=== PATIENT | female | born 1980 | race African-American/Black ===

== ENCOUNTER 2016-06-17 17:57 | Emergency (ER) | payer SELFPAY ==
[~2016-06-17 17:57] MED LIST: CYCL10TA2 PO
[2016-06-17 18:12] VITALS: BP 114/73
[2016-06-17 19:02] LABS: OBC FLU VALID
[2016-06-17] MEDS ORDERED: PROAIR HFA8.5 GM INH (19:24)
[2016-06-17] MEDS ORDERED: PRED20TA PO (19:24)
--- NOTE | 2016-06-17 19:25 | PHYS DOC ---
Past Medical History Past Medical History: GERD, STD Past Surgical History: Cholecystectomy, , Tubal ligation Additional Past Surgical Histo: D&C Smoking: Less than 1pk/day Alcohol Use: Occasionally Drug Use: None Adult General Chief Complaint Chief Complaint: SORE THROAT [facility] HPI Patient is a 36 year old female who presents with sore throat and sinus congestion for 3 days. She has also had a nonproductive cough. She denies fever , shortness of breath, abdominal pain, nausea, or vomiting. She did not receive a flu shot this year. She denies any known sick contacts. Her PCP is Dr. Weller. Review of Systems Review of Systems Constitutional: Denies fever or chills. [] Eyes: Denies change in visual acuity, redness, or eye pain. [] HENT: Denies ear pain. Reports sore throat and sinus congestion. Respiratory: Denies shortness of breath. Reports nonproductive cough. Cardiovascular: Denies chest pain, palpitations or edema. [] GI: Denies abdominal pain, nausea, vomiting, bloody stools or diarrhea. [] : Denies dysuria, hematuria or urinary frequency. [] Musculoskeletal: Denies back pain or joint pain. [] Integument: Denies rash or skin lesions. [] Neurologic: Denies headache, focal weakness or sensory changes. [] Endocrine: Denies polyuria or polydipsia. [] Psych: Denies anxiety or depression. [] All systems reviewed and negative unless otherwise stated in the HPI. Allergies Allergies Allergies Coded Allergies Type Severity Reaction Last Updated Verified amoxicillin Allergy Intermediate hives 03/15/15 Yes latex Allergy Intermediate "welts" 03/15/15 Yes Physical Exam Physical Exam Constitutional: Well developed, well nourished, no acute distress, non-toxic appearance. [] HENT: Normocephalic, atraumatic, bilateral external ears normal, oropharynx moist, no oral exudates, nose normal. Bilateral TMs without erythema or bulging. There is posterior pharyngeal erythema with mild bilateral tonsillar edema. There appear to be tonsilliths as opposed to exudates on the tonsils. Bilateral nasal turbinates are swollen and erythematous. Eyes: PERRLA, EOMI, conjunctiva normal, no discharge. [] Neck: Normal range of motion, no tenderness, supple, no stridor. [] Cardiovascular: Heart rate regular rhythm, no murmur [] Lungs & Thorax: Bilateral breath sounds clear to auscultation without wheezes, rales, or rhonchi. Skin: Warm, dry, no erythema, no rash. [] Neurologic: Alert and oriented X 3, normal motor function, normal sensory function, no focal deficits noted. [] Psychologic: Affect normal, judgement normal, mood normal. [] Current Patient Data Vital Signs Vital Signs Date Time Temp Pulse Resp B/P Pulse Ox O2 Delivery O2 Flow Rate FiO2 06/17/16 18:12 98.3 84 20 100 Room Air 98.3 Lab Values Laboratory Tests Test 06/17/16 18:33 Influenza Type A Antigen Negative (NEGATIVE) Influenza Type B Antigen Negative (NEGATIVE) Rapid strep negative EKG EKG [] Radiology/Procedures Radiology/Procedures [] Course & Med Decision Making Course & Med Decision Making Pertinent Labs and Imaging studies reviewed. (See chart for details) [] Dragon Disclaimer Dragon Disclaimer This electronic medical record was generated, in whole or in part, using a voice recognition dictation system. Departure Departure Impression: Primary Impression: URI (upper respiratory infection) Disposition: HOME, SELF-CARE Condition: STABLE Referrals: CEDRIC WELLER MD (PCP) Patient Instructions: Upper Respiratory Infection, Adult, [id number] Additional Instructions: Your flu and strep tests were negative today. You appear to have a viral upper respiratory infection. Please complete all of the prescribed steroid, even if you're feeling better. Please use the prescribed inhaler as needed for cough or shortness of breath. Do not use more often than directed. Please follow-up with your doctor if your symptoms continue. Return to emergency department if you have increased difficulty breathing, difficulty swallowing, or other new or concerning symptoms. Scripts Prednisone 20 Mg [id number] Mg PO DAILY 5 Days Prov:JESSICA MCGUIRE 06/17/16 Albuterol Sulfate (Proair Hfa Inhaler)8.5 Gm [id number].[id number] Puff INH Q4HRS PRN SHORTNESS OF BREATH #1 INHALER Prov:JESSICA MCGUIRE 06/17/16 Problem Qualifiers Primary Impression: URI (upper respiratory infection) URI type: unspecified viral URI Qualified Code: J06.9 - Acute upper respiratory infection, unspecified JESSICA MCGUIRE Jun 17, 2016 19:25
[2016-06-18 05:41] LABS: NEGATIVE OBC STREP NEG; POSITIVE OBC STREP POS
== END 2016-06-17 19:30 | disposition home or self-care (01) ==
LOC: ER 17:57
DX: J06.9 Acute upper respiratory infection, unspecified (principal); F17.200 Nicotine dependence, unspecified, uncomplicated; Z88.0 Allergy status to penicillin; Z91.040 Latex allergy status
CPT/HCPCS: 87070; 87804; 87880; 99284

== ENCOUNTER 2017-06-03 14:32 | Emergency (ER) | payer SELFPAY, OTHER ==
[2017-06-03 15:11] LABS: URINE HCG POC HCG NEGATIVE (Negative)
[2017-06-03 15:21] LABS: ADD MAN DIFF? NO
[2017-06-03 15:23] LABS: BASO # 0.1 x10^3/uL (0.0-0.2); BASO % 2 % (0-3); EOS # 0.2 x10^3/uL (0.0-0.7); EOS % 4 % (0-3); HEMATOCRIT 35.7 % (36.0-47.0); HEMOGLOBIN 11.3 g/dL (12.0-15.5); LYMPH % 39 % (24-48); MEAN CORPUSCULAR HEMOGLOBIN 24 pg (25-35); MEAN CORPUSCULAR HGB CONC 32 g/dL (31-37); MEAN CORPUSCULAR VOLUME 76 fL (79-100); MONO # 0.4 x10^3/uL (0.0-1.1); MONO % 9 % (0-9); NEUT # 2.3 x10^3uL (1.8-7.7); NEUT % 46 % (31-73); PLATELET COUNT 472 x10^3/uL (140-400); RED CELL DISTRIBUTION WIDTH 16.2 % (11.5-14.5)
[2017-06-03] MEDS: ONDANSETRON PF 4 MG/2 ML VIAL. IV (15:28)
[2017-06-03] MEDS: LIDO:MAALOX:DONNATAL 1:1:1 15 ML SINGLE DOSE SWSW (15:28)
[2017-06-03 15:29] LABS: BILIRUBIN,URINE NEGATIVE (NEG); CLARITY,URINE CLEAR; COLOR,URINE YELLOW; GLUCOSE,URINE NEGATIVE (NEG); NITRITE,URINE NEGATIVE (NEG); PROTEIN,URINE NEGATIVE (NEG-TRACE)
[2017-06-03 15:40] LABS: ANION GAP 9 (6-14); BLOOD UREA NITROGEN 11 mg/dL (7-20); BUN/CREATININE RATIO 8 (6-20); CALCIUM 8.5 mg/dL (8.5-10.1); CARBON DIOXIDE 28 mmol/L (21-32); CHLORIDE 105 mmol/L (98-107); CREATININE 1.3 mg/dL (0.6-1.0); GFR 55.8; GLUCOSE 96 mg/dL (70-99); POTASSIUM 3.9 mmol/L (3.5-5.1); SODIUM 142 mmol/L (136-145)
[2017-06-03 15:45] LABS: ALBUMIN 3.5 g/dL (3.4-5.0); ALBUMIN/GLOBULIN RATIO 0.9 (1.0-1.7); ALK PHOS 38 U/L (46-116); ALT (SGPT) 24 U/L (14-59); AST (SGOT) 17 U/L (15-37); LIPASE 164 U/L (73-393); TOTAL BILIRUBIN 0.5 mg/dL (0.2-1.0); TOTAL PROTEIN 7.4 g/dL (6.4-8.2)
[2017-06-03 15:53] LABS: RBC,URINE 0 /HPF (0-2)
[2017-06-03 15:54] LABS: BACTERIA,URINE FEW /HPF (0-FEW); SQUAMOUS EPITHELIAL CELL,UR MOD /LPF
[2017-06-03] MEDS: fentaNYL PF VIAL 100 MCG/2 ML VIAL IV (16:09)
== END 2017-06-03 16:15 | disposition home or self-care (01) ==
LOC: ER 14:32
DX: R10.13 Epigastric pain (principal); N39.0 Urinary tract infection, site not specified; K21.9 Gastro-esophageal reflux disease without esophagitis; Z90.49 Acquired absence of other specified parts of digestive tract; Z98.51 Tubal ligation status; Z88.1 Allergy status to other antibiotic agents; Z91.040 Latex allergy status
CPT/HCPCS: 36415; 80053; 81001; 81025; 83690; 85025; 87086; 96374; 99284-25; J2405

== ENCOUNTER 2018-04-11 16:10 | Emergency (ER) | payer SELFPAY ==
[~2018-04-11] VITALS: Ht 167.6 cm; Wt 81.6 kg
[~2018-04-11 16:10] MED LIST changes: +CIPR250T PO; +OMEP20TA63 PO; +ONDA4TAB10 PO; +PRED20TA PO; +PROAIR HFA8.5 GM INH
[2018-04-11 16:33] VITALS: BP 137/78
--- NOTE | 2018-04-11 16:34 | PHYS DOC ---
Past Medical History Past Medical History: GERD, STD Past Surgical History: Cholecystectomy, , Tubal ligation Additional Past Surgical Histo: D&C Alcohol Use: Occasionally Drug Use: None Adult General Chief Complaint Chief Complaint: ANXIETY/PANIC ATTACK [facility] HPI Patient is a 38 year old female who presents with an anxiety attack. 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 She states that she made it back to her office where her employees called EMS for help. She requested that they bring her to [facility]. She states that the attack stopped while she was in route to the hospital. She states that she is no longer having any anxiety and would actually like to return to work. The patient does have a significant history of anxiety and panic attacks. She states that it is been quite a while since she has had a panic attack such as this one. She does not take medicine for her anxiety. Review of Systems Review of Systems Constitutional: Denies fever or chills [] Eyes: Denies change in visual acuity, redness, or eye pain [] HENT: Denies nasal congestion or sore throat [] Respiratory: Denies cough or shortness of breath [] Cardiovascular: No additional information not addressed in HPI [] GI: Denies abdominal pain, nausea, vomiting, bloody stools or diarrhea [] : Denies dysuria or hematuria [] Musculoskeletal: Denies back pain or joint pain [] Integument: Denies rash or skin lesions [] Neurologic: Denies headache, focal weakness or sensory changes [] Endocrine: Denies polyuria or polydipsia [] All other systems were reviewed and found to be within normal limits, except as documented in this note. Allergies Allergies Allergies Coded Allergies Type Severity Reaction Last Updated Verified amoxicillin Allergy Intermediate hives 03/15/15 Yes latex Allergy Intermediate "welts" 03/15/15 Yes Physical Exam Physical Exam Constitutional: Well developed, well nourished, no acute distress, non-toxic appearance. [] Cardiovascular:Heart rate regular rhythm, no murmur [] Lungs & Thorax: Bilateral breath sounds clear to auscultation [] Abdomen: Bowel sounds normal, soft, no tenderness, no masses, no pulsatile masses. [] Skin: Warm, dry, no erythema, no rash. [] Back: No tenderness, no CVA tenderness. [] Extremities: No tenderness, no cyanosis, no clubbing, ROM intact, no edema. [] Neurologic: Alert and oriented X 3, normal motor function, normal sensory function, no focal deficits noted. [] Psychologic: Affect normal, judgement normal, mood normal. [] Current Patient Data Vital Signs Vital Signs Date Time Temp Pulse Resp B/P (MAP) Pulse Ox O2 Delivery O2 Flow Rate FiO2 04/11/18 16:33 98.6 100 18 137/78 (97) 99 Room Air 98.6 EKG EKG [] Radiology/Procedures Radiology/Procedures [] Course & Med Decision Making Course & Med Decision Making Pertinent Labs and Imaging studies reviewed. (See chart for details) []The patient is now calm and having a pleasant conversation in the exam room. She denies any current symptoms. She does agree to take the rest of the day off from work. Dragon Disclaimer Dragon Disclaimer This electronic medical record was generated, in whole or in part, using a voice recognition dictation system. Departure Departure Impression: Primary Impression: Anxiety Disposition: 01 HOME, SELF-CARE Condition: STABLE Referrals: CEDRIC MAI MD (PCP) Patient Instructions: Anxiety and Panic Attacks Additional Instructions: Follow up with your PCP in 2 days if not improving. You may also benefit from counseling services from a place such a [facility]. ANABEL SIDDIQUI APRN Apr 11, 2018 16:34
== END 2018-04-11 16:40 | disposition home or self-care (01) ==
LOC: ER 16:10
DX: F41.9 Anxiety disorder, unspecified (principal); F17.200 Nicotine dependence, unspecified, uncomplicated; K21.9 Gastro-esophageal reflux disease without esophagitis; Z90.49 Acquired absence of other specified parts of digestive tract; Z98.890 Other specified postprocedural states; Z98.51 Tubal ligation status; Z88.1 Allergy status to other antibiotic agents; Z91.040 Latex allergy status
CPT/HCPCS: 99284

== ENCOUNTER → 2020-04-30 | Outpatient (CLI) | payer OTHER ==
[~2020-04-30] MED LIST changes: +ALBU2.5V8 INH; -PROAIR HFA8.5 GM INH
--- NOTE | 2020-04-30 09:06 | KCIC ---
Bilateral digital screening mammograms with 3-D tomosynthesis: Reason for examination: Routine baseline screening. Bilateral mammograms in CC and oblique projections were obtained with 2-D imaging and 3-D tomosynthesis imaging on a Siemens Inspiration unit and reviewed on the workstation. Interpretation was made with the benefit of CAD. The skin and nipples show no abnormalities. No abnormal axillary lymph nodes are seen. The breast parenchyma shows scattered fatty and fibroglandular density. (Breast density: Category B.) There is a small nodule consistent with an intramammary lymph node at the 10:00 C position of the right breast. There are no other dominant masses, suspicious calcifications or architectural distortion. Impression: No evidence of malignancy. Recommend routine screening. BI-RAD Category 2: Benign. "Our facility is accredited by the [employer] Mammography Program." This patient's information has been entered into a reminder system for the patient to be notified with the results of her examination and a target date for the next mammogram. Electronically signed by: Nicolasa Galloway MD (04/30/2020 9:03 AM) [id number]
== END ==
LOC: KCIC MAMMO 07:51
PROVIDERS: ATTEND Family Medicine
DX: Z12.31 Encounter for screening mammogram for malignant neoplasm of breast (principal)
CPT/HCPCS: 77067

== ENCOUNTER → 2020-11-11 | Outpatient (CLI) | payer OTHER ==
--- NOTE | 2020-11-11 17:29 | RAD ---
EXAMINATION: US PELVIS COMPLETE INDICATION: 40 years, Female, fibroid. COMPARISON: CT dated 09/19/2012 TECHNIQUE: Transabdominal ultrasound of the pelvis was performed with grayscale, spectral, and color doppler imaging. FINDINGS: UTERUS: Position: Anteverted Measures: 14.1 x 7.9 x 13.0 cm. Uterine/Endometrial Morphology: Heterogeneous ill-defined masses, the largest exophytic from the ante rior uterine body measures 7.1 x 6.8 x 6.5 cm. The smaller mass exophytic from the posterior uterine body measures 4.7 x 2.9 x 3.9 cm. Endometrium is not visualized, likely obscured by the uterine masses. RIGHT OVARY/ADNEXA: Not visualized, likely obscured by the uterine masses. LEFT OVARY/ADNEXA: Measures: 5.5 x 2.5 x 1.6 cm. Left Ovarian Morphology: Unremarkable. Left Ovarian Color And Spectral Doppler Flow: Normal. OTHER: Fluid/Cul-De-Sac: No pelvic free fluid IMPRESSION: Two large exophytic uterine masses, measuring up to 7.1 cm, most consistent with subserosal fibroids. Electronically signed by: Sully Harmon MD (11/11/2020 5:26 PM) [id number]
== END ==
LOC: US 15:37
PROVIDERS: ATTEND Obstetrics & Gynecology
DX: D25.9 Leiomyoma of uterus, unspecified (principal); N85.9 Noninflammatory disorder of uterus, unspecified
CPT/HCPCS: 76856

== ENCOUNTER 2021-07-26 06:29 | Inpatient (IN) | payer OTHER ==
[2021-07-26] VITALS (12 sets, daily range): BP systolic 111–162; BP diastolic 63–84
[~2021-07-26] VITALS: Ht 170.2 cm; Wt 113.0 kg
[~2021-07-26 06:29] MED LIST changes: +CLINDAMYCIN 900MG PREMIX 50 ML IV PRN; +CYCL10TA19 PO; -CYCL10TA2 PO; +ESCITALOPRAM OX10 MG PO; +HYDR25TA PO; +IV RINGERS,LACTATED 1000ML 1,000 ML IV SCH; +MORPHINE SULFATE 2 MG/ML INJ. IVP PRN; +PROCHLORPERAZINE 10 MG/2 ML VIAL. IVP PRN; +fentaNYL PF VIAL 100 MCG/2 ML VIAL IVP PRN
[2021-07-26 07:25] LABS: BASO # 0.1 x10^3/uL (0.0-0.2); BASO % 2 % (0-3); EOS # 0.2 x10^3/uL (0.0-0.7); EOS % 3 % (0-3); HEMOGLOBIN 8.7 g/dL (12.0-15.5); LYMPH # 2.1 x10^3/uL (1.0-4.8); LYMPH % 38 % (24-48); MEAN CORPUSCULAR HEMOGLOBIN 20 pg (25-35); MEAN CORPUSCULAR HGB CONC 31 g/dL (31-37); MEAN CORPUSCULAR VOLUME 65 fL (79-100); MONO # 0.4 x10^3/uL (0.0-1.1); MONO % 8 % (0-9); NEUT # 2.7 x10^3/uL (1.8-7.7); NEUT % 50 % (31-73); PLATELET COUNT 510 x10^3/uL (140-400); RED BLOOD COUNT 4.31 x10^6/uL (3.50-5.40); RED CELL DISTRIBUTION WIDTH 18.9 % (11.5-14.5); WHITE BLOOD COUNT 5.5 x10^3/uL (4.0-11.0)
[2021-07-26] MEDS ORDERED: METHYLENE BLUE 0.5% 10ml AMPULE. ONE ×2 (07:32→11:22)
[2021-07-26] MEDS ORDERED: PROPOFOL 10 MG/ML (20ML) VIAL. IV ONE ×2 (07:36→13:33)
[2021-07-26] MEDS ORDERED: LIDOCAINE 2% PF 5 ML VIAL. ONE (07:36)
[2021-07-26] MEDS ORDERED: ONDANSETRON PF 4 MG/2 ML VIAL. ONE (07:36)
[2021-07-26] MEDS ORDERED: DEXAMETHASONE SOD PHOS 4 MG/ML VIAL ONE (07:36)
[2021-07-26] MEDS ORDERED: ROCURONIUM 50 MG/5 ML VIAL. ONE ×3 (07:37→12:33)
[2021-07-26] MEDS ORDERED: MIDAZOLAM HCL/PF 2 MG/2 ML VIAL. ONE (07:38)
[2021-07-26] MEDS ORDERED: fentaNYL PF VIAL 100 MCG/2 ML VIAL ONE ×3 (07:38→14:49)
[2021-07-26] MEDS ORDERED: NEOSTIGMINE METHYLSULFATE 5 MG/5 ML SYRINGE. ONE (07:40)
[2021-07-26] MEDS ORDERED: GLYCOPYRROLATE 1 MG/5 ML VIAL. ONE (07:40)
[2021-07-26] MEDS ORDERED: GENTAMICIN SULFATE 400 MG in IV DEXTROSE 5% 100ML 100 ML IV PRN (08:00)
--- NOTE | 2021-07-26 08:07 | PDOC1 ---
[employer] H&P Date of Admission: Date of Admission: History of Present Illness: 41y presents for scheduled surgery. The pt was seen on 11/18/20 for f/u on her fibroids. Her fibroids were associated with pain and bleeding. An u/s on 11/11/20 revealed a uterus measuring 14.1 x 7.9 x 13.0, with fibroids measuring 7.1 x 6.8 x 6.5 and 4.7 x 2.9 x 3.9. After discussion of tx options she desired definitive tx. Discussed based on the size of her uterus and h/o 2 C/S, we may be not able to successfully perform a LAVH. She is aware that we may need to convert to open. 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 06/20/21 Menarche 12yo / Regular cycles control - BTL SH: no tob, rare EtOH FH: arthritis, HTN, DM Medications: Meds: Current Medications Medications (Trade) Dose Ordered Sig/Kayla Route PRN Reason Start Time Stop Time Status Last Admin Dose Admin Ringer's Solution 1,000 ml @ 30 mls/hr Q24H IV 07/26/21 06:00 07/26/21 17:59 07/26/21 07:06 Allergies: Coded Allergies: amoxicillin (Verified Allergy, Intermediate, hives, 07/26/21) latex (Verified Allergy, Intermediate, "welts", 07/26/21) Physical Exam: Vital Signs: Vital Signs Date Time Temp Pulse Resp B/P (MAP) Pulse Ox O2 Delivery O2 Flow Rate FiO2 07/26/21 07:04 97.6 80 20 162/84 100 Room Air 97.6 PE: GENERAL: No apparent distress. Alert and oriented. HEENT: Head normocephalic, atraumatic. NECK: Supple LUNGS: Clear to auscultation. HEART: RRR, S1, S2 present, pulses intact ABDOMEN: Soft, positive bowel sounds. EXTREMITIES: No cyanosis or edema. NEUROLOGIC: Normal speech, normal tone PSYCHIATRIC: Normal affect, normal mood. SKIN: No ulceration. Labs: Laboratory Tests Test 07/26/21 06:50 07/26/21 06:52 POC Urine HCG, Qualitative Hcg negative (Negative) White Blood Count 5.5 x10^3/uL (4.0-11.0) Red Blood Count 4.31 x10^6/uL (3.50-5.40) Hemoglobin 8.7 g/dL (12.0-15.5) L Hematocrit 28.0 % (36.0-47.0) L Mean Corpuscular Volume 65 fL (79-100) L Mean Corpuscular Hemoglobin 20 pg (25-35) L Mean Corpuscular Hemoglobin Concent 31 g/dL (31-37) Red Cell Distribution Width 18.9 % (11.5-14.5) H Platelet Count 510 x10^3/uL (140-400) H Neutrophils (%) (Auto) 50 % (31-73) Lymphocytes (%) (Auto) 38 % (24-48) Monocytes (%) (Auto) 8 % (0-9) Eosinophils (%) (Auto) 3 % (0-3) Basophils (%) (Auto) 2 % (0-3) Neutrophils # (Auto) 2.7 x10^3/uL (1.8-7.7) Lymphocytes # (Auto) 2.1 x10^3/uL (1.0-4.8) Monocytes # (Auto) 0.4 x10^3/uL (0.0-1.1) Eosinophils # (Auto) 0.2 x10^3/uL (0.0-0.7) Basophils # (Auto) 0.1 x10^3/uL (0.0-0.2) Platelet Estimate Pending Laboratory Tests 07/26/21 06:52 Laboratory Tests 07/26/21 06:52 Assessment & Plan: A/P 41y with fibroids 1.) Fibroids -uterus measuring 14.1 x 7.9 x 13.0, fibroids (7.1 x 6.8 x 6.5 and 4.7 x 2.9 x 3.9). 2.) Dysmenorrhea 3.) Pelvic pain - pain outside of cycles at times 4.) Menorrhagia 5.) Prev C/S x 2 6.) Amoxicillin allergy 7.) Anxiety 8.) Contraception - BTL CEDRIC NO MD Jul 26, 2021 08:07
[2021-07-26] MEDS ORDERED: SEVOFLURANE > 120 MINUTES. IH ONE (08:25)
[2021-07-26 09:15] LABS: PLT ESTIMATE ADEQUATE (ADEQUATE)
[2021-07-26 09:16] LABS: HYPOCHROMIA PRESENT; MICROCYTOSIS PRESENT
[2021-07-26] MEDS ORDERED: FAMOTIDINE 20 MG/2 ML VIAL ONE (09:33)
[2021-07-26] MEDS ORDERED: HYDROmorphone 2 MG/ML INJ. ONE ×2 (09:56→15:53)
[2021-07-26] MEDS ORDERED: ALBUMIN HUMAN 5% 500 ML IV ONE (10:07)
[2021-07-26] MEDS ORDERED: SUGAMMADEX SODIUM 200 MG/2 ML VIAL. IVP ONE (13:15)
--- NOTE | 2021-07-26 14:28 | PDOC4 ---
OPERATIVE NOTE: PreOp Dx: 1.) Fibroids, 2.) Dysmenorrhea, 3.) Pelvic pain, 4.) Menorrhagia, 5.) Prev C/S x 2, 6.) Amoxicillin allergy, 7.) Anxiety PostOp Dx: Same Procedure: LAVH converted DANNY/LS, Bladder repair Surgeon: Mckenzie No Anesthesia: GETA EBL: 800 cc Fluids: 1800 cc 1U pRBC UOP: 800 cc Complications none Findings: enlarged fibroid uterus. Dense adhesion of previous bladder flap. Nml right and left ovary. Complications: bladder injury Pathology: uterus, cervix, left tube CEDRIC NO MD Jul 26, 2021 14:28
[2021-07-26] MEDS ORDERED: DEXTROSE 50% 25 GM / 50ML DISP.SYRIN. IV PRN (14:30)
[2021-07-26] MEDS ORDERED: 0.9 % SODIUM CHLORIDE 10 ML DISP.SYRIN. IV PRN (14:30)
[2021-07-26] MEDS: IV NORMAL SALINE 1000ML BAG 1,000 ML IV SCH (14:30)
[2021-07-26] MEDS ORDERED: NALOXONE 0.4 MG/ML VIAL. IV PRN (14:30)
[2021-07-26] MEDS ORDERED: oxyCODONE/APAP 5/325 1 TAB TABLET PO PRN ×2 (14:30)
[2021-07-26] MEDS ORDERED: MORPHINE SULFATE 2 MG/ML INJ. IV PRN ×2 (14:30)
[2021-07-26] MEDS ORDERED: diphenhydrAMINE 50 MG/ML VIAL IV PRN (14:30)
[2021-07-26] MEDS ORDERED: diphenhydrAMINE HCL 25 MG CAPSULE PO PRN (14:30)
[2021-07-26] MEDS ORDERED: IBUPROFEN 200 MG TABLET. PO PRN (14:30)
[2021-07-26] MEDS: fentaNYL PF VIAL 100 MCG/2 ML VIAL IVP PRN ×2 (14:52→15:13)
[2021-07-26] MEDS: HYDROmorphone 2 MG/ML INJ. IVP PRN ×4 (15:54→16:52)
[2021-07-26 15:56] LABS: HEMATOCRIT 14.1 % (36.0-47.0); RED BLOOD COUNT 1.89 x10^6/uL (3.50-5.40); RED CELL DISTRIBUTION WIDTH 20.4 % (11.5-14.5); WHITE BLOOD COUNT 8.5 x10^3/uL (4.0-11.0)
[2021-07-26 16:01] LABS: HEMOGLOBIN 4.2 g/dL (12.0-15.5)
--- NOTE | 2021-07-26 17:31 | OP ---
DATE OF SURGERY: 07/26/2021 SURGEON: Alex Jane MD. 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 PREOPERATIVE DIAGNOSIS: Bladder injury. POSTOPERATIVE DIAGNOSIS: Bladder injury. PROCEDURE PERFORMED: Repair of bladder injury, complicated. ANESTHESIA TYPE: General. DESCRIPTION OF PROCEDURE: This is a 41-year-old female who was undergoing a hysterectomy for a large uterine fibroid. I was called during the surgery to evaluate gross hematuria. When I arrived, the patient's incisions had been closed. A Lake catheter was in place, draining red urine. I removed the Lake catheter and then performed rigid cystoscopy. A large injury in the posterior wall of the bladder was immediately identified. The bladder would not fill due to the large opening in the bladder wall. The scope was removed. The patient's abdomen was reprepped and draped. Her Pfannenstiel incision was reopened and a retractor was placed. There was irrigation fluid noted in the pelvis, which was suctioned out. A large tear was noted in the bladder, starting from the dome of the bladder and proceeding down to the trigone. A clean Lake catheter was replaced and the catheter could be seen through the opening in the bladder injury. The bladder injury was closed with a 2-0 Vicryl suture in 2 layers. Closure was difficult due to the tear proceeding posteriorly and down to the trigone of the bladder, however, eventually satisfactory closure of the bladder wall in 2 layers was performed. The bladder was leak tested and a small leak was noted on the lowest most portion of the suture closure. A [id number] suture was placed in that location and then no further leakage was noted on repeat leak test. A pelvic drain was placed and brought out through one of the laparoscopic incision sites. The drain was secured with a silk suture. Rigid cystoscopy was then repeated, which demonstrated that the bladder tear was well closed. Both ureteral orifices were visualized and were emitting strong jets of clear urine. There was no sign of active bleeding. The scope was removed and the Lake catheter was replaced. I assisted Dr. Peerz while he closed the peritoneum. At that point, I left the room and Dr. Perez completed closure of the Pfannenstiel incision. BLOOD LOSS: None. COMPLICATIONS: None. SPECIMENS: None. LANEY/YESSICA DR: Trip TID: [id number] MTDD
[2021-07-26] MEDS: ONDANSETRON PF 4 MG/2 ML VIAL. IVP PRN (19:09)
[2021-07-26] MEDS: DOCUSATE SODIUM 100 MG CAPSULE. PO SCH (21:00)
[2021-07-26] MEDS: IV DEXTROSE 5 %-0.45 % NACL 1,000 ML IV SCH (21:36)
[2021-07-26] MEDS: KETOROLAC 15 MG/ML VIAL. IV PRN (21:36)
--- NOTE | 2021-07-26 21:43 | OP ---
DATE OF SURGERY: 07/26/2021 PREOPERATIVE DIAGNOSES: 1. Fibroids. 2. Dysmenorrhea. 3. Pelvic pain. 4. Menorrhagia. 5. Previous section x2. POSTOPERATIVE DIAGNOSES: 1. Fibroids. 2. Dysmenorrhea. 3. Pelvic pain. 4. Menorrhagia. 5. Previous section x2. ESTIMATED BLOOD LOSS: 800 mL. FLUIDS: 1800 mL plus 1 unit packed red blood cells. URINE OUTPUT: 800 mL. FINDINGS: Enlarged uterus, dense adhesions from previous C-sections along the bladder flap, right tube and ovary in cased in adhesions from uterus to lateral sidewall. COMPLICATIONS: Bladder injury. PATHOLOGY: Uterus, cervix and tubes. DESCRIPTION OF PROCEDURE: The patient was taken to the operating room where general endotracheal intubation was obtained without difficulty. The patient was prepped and draped in normal sterile fashion. Attention was first turned to the vagina where a speculum was placed to visualize the cervix. The cervix was then grasped with a single tooth tenaculum on the anterior lip, an acorn uterine manipulator was then placed in the cervix. At that point, speculum was removed and Lake catheter was then placed. Once this was done, attention was then turned to the abdomen where a 5 mm skin incision was made in her infraumbilical fold. A Veress needle was introduced into this incision and the abdomen was insufflated to 15 mmHg. The Veress needle was removed and a 5 mm trocar was placed into the incision. Intra-abdominal placement was confirmed with laparoscope. Visualization of the abdominal cavity revealed very enlarged uterus with significant fibroids. The pedicles were difficult to see due to the size of the uterus and the fibroids, but it was felt that with traction, the pedicles could be better visualized. At that point, a second trocar was then placed on the left first by making a 5 mm skin incision approximately two-thirds between the ischial spine and the umbilicus. Once this incision was made, a 5 mm trocar was then placed in the abdomen under direct visualization of the laparoscope. A third trocar was then placed on the right, again approximately two-thirds between the ischial spine and the umbilicus first by making a 5 mm skin incision followed by placing the trocar under direct visualization of the laparoscope. At that point, the uterus was pulled medially from the right side to better visualize the left uterine pedicles. First, the left tube was then grasped, elevated and the LigaSure device was used to separate the tube from the ovary. Once this was accomplished, the LigaSure device was used to cut through the round ligament on the left. The pedicles that could be visualized were taken down. A bladder flap was then created by undermining the peritoneum and was brought to the midline. At that point, attention was then turned to the right side, which was more difficult to visualize due to the enlarged fibroid. The fibroid was then grasped from the left port and brought medially. The round ligament could be better visualized in that section, but the ovary seemed to be encased in peritoneum, most likely from her previous C-sections or previous surgeries. Since the pedicle could be isolated and identified, the LigaSure device was used to coagulate and cut through them. Additional bites of what could be visualized were then taken down with the LigaSure device. Again, the bladder flap was then continued starting on the right and then brought medially to complete the bladder flap. At that point, it was difficult to get to the pedicles as necessary to accomplish the procedure and it was felt to be a safer option to move towards an open approach. At that point, the abdomen was deinsufflated and laparoscopic instruments were removed as well as the trocars. At that point, a Pfannenstiel skin incision was made through her previous incision. The scaple was used to cut down to the level of the fascia. The fascia was nicked in the midline. Fascial incision was then extended laterally with Dupont scissors. Superior aspect of fascial incision was grasped with 2 Analia clamps, elevated and the underlying rectus muscle was dissected off with the scalpel. Attention was then turned to the inferior aspect of the fascial incision, which was grabbed with a Analia clamp, elevated and the underlying rectus muscle was dissected off with Dupont scissors. Attention was then turned to the midline of the rectus muscle, which was grasped with 2 hemostats and tented up so that the Metzenbaum scissors could enter the peritoneum sharply. Once this had been performed, the peritoneal incision was then extended superiorly and inferiorly with good visualization of the bladder with traction and countertraction. At that point, Tito ring was then placed for retraction. Once this was done, the uterus was then grasped and then elevated to be brought through the incision. Pean clamp was put on the left round ligament, but the fibroid on the right had distorted the round ligament on that side and that the fibroid was used more for manipulation. At that point, the LigaSure device was then used to coagulate and cut the remaining pedicles down to the level of the cervix. Once below the cervix, the LigaSure device was used to free the uterus and the cervix. At that point, the vagina was then closed in a running locked fashion with 0 Vicryl. Good hemostasis was noted. At that point, the gutters were copiously irrigated and cleared of all clots and debris. At that time, the Tito was removed. The peritoneum was then closed with 2-0 Vicryl in a running fashion. The muscle was reapproximated with 2-0 Vicryl in a running fashion. The fascia was then closed with 0 Vicryl in a running fashion. While the skin was being closed, examination of the Lake revealed red fluid thought to be blood. This was only recently seen and only 30 minutes earlier had been clear. At that point, a cystoscope was performed. It did not have the appearance of a normal bladder and which lead to concerns of urological injury. At that time Urology was consulted. Once Urology arrived, they assisted with the case. See operative note for full detail. Once Urology was completed with their portion of the case, the abdomen again was closed first by closing the peritoneal cavity with 2-0 Vicryl in a running fashion, reapproximating the muscle with 2-0 Vicryl in a running fashion, closing the fascia with 0 Vicryl in a running fashion and then closing the incision with a 3-0 Monocryl in a subcuticular manner. Sponges, laps and needles were correct x3. Clindamycin and gentamicin were given prior to the procedure. YAZ DR: Rasta TID: [id number] AARON
[2021-07-26 22:47] LABS: BASO # 0.1 x10^3/uL (0.0-0.2); BASO % 1 % (0-3); EOS # 0.3 x10^3/uL (0.0-0.7); EOS % 2 % (0-3); HEMATOCRIT 29.7 % (36.0-47.0); LYMPH # 1.1 x10^3/uL (1.0-4.8); LYMPH % 6 % (24-48); MEAN CORPUSCULAR HEMOGLOBIN 22 pg (25-35); MEAN CORPUSCULAR HGB CONC 30 g/dL (31-37); MEAN CORPUSCULAR VOLUME 73 fL (79-100); MONO # 0.9 x10^3/uL (0.0-1.1); MONO % 5 % (0-9); NEUT # 16.5 x10^3/uL (1.8-7.7); NEUT % 87 % (31-73); PLATELET COUNT 456 x10^3/uL (140-400); RED BLOOD COUNT 4.05 x10^6/uL (3.50-5.40); RED CELL DISTRIBUTION WIDTH 21.7 % (11.5-14.5); WHITE BLOOD COUNT 18.9 x10^3/uL (4.0-11.0)
[2021-07-27] MEDS: IV DEXTROSE 5 %-0.45 % NACL 1,000 ML IV SCH ×2 (00:30→09:47)
[2021-07-27 01:00] VITALS: BP 99/55
[2021-07-27 05:00] VITALS: BP 92/62
[2021-07-27] MEDS: KETOROLAC 15 MG/ML VIAL. IV PRN ×3 (05:32→20:24)
[2021-07-27 08:25] LABS: BASO % 0 % (0-3); EOS % 0 % (0-3); HEMATOCRIT 26.4 % (36.0-47.0); HEMOGLOBIN 8.2 g/dL (12.0-15.5); LYMPH % 15 % (24-48); MEAN CORPUSCULAR HEMOGLOBIN 22 pg (25-35); MEAN CORPUSCULAR HGB CONC 31 g/dL (31-37); MEAN CORPUSCULAR VOLUME 72 fL (79-100); MONO # 0.9 x10^3/uL (0.0-1.1); MONO % 7 % (0-9); NEUT # 10.6 x10^3/uL (1.8-7.7); NEUT % 78 % (31-73); PLATELET COUNT 402 x10^3/uL (140-400); RED BLOOD COUNT 3.69 x10^6/uL (3.50-5.40); RED CELL DISTRIBUTION WIDTH 22.3 % (11.5-14.5); WHITE BLOOD COUNT 13.6 x10^3/uL (4.0-11.0)
[2021-07-27 08:38] LABS: CALCIUM 7.6 mg/dL (8.5-10.1); CREATININE 0.9 mg/dL (0.6-1.0); GFR 83.5; POTASSIUM 3.7 mmol/L (3.5-5.1)
[2021-07-27] MEDS: DOCUSATE SODIUM 100 MG CAPSULE. PO SCH ×2 (09:46→18:33)
--- NOTE | 2021-07-27 10:30 | PDOC ---
ARCHITECT INTERN PROGRESS NOTE Date of Service: DATE: 07/27/21 TIME: 10:29 Subjective: Spoke with pt and mother last night around 1700. The mother was very frustrated with me. She stated that prior to the surgery when I came in the room that I did not acknowledge anyone. She stated that she felt something in her heart that her daughter should cancel the procedure right then and there. She also expressed that she felt that the risk of the surgery was never told to her daughter. Along with the bladder injury she is also very concerned that her d liza was getting blood. Explained that her chronic anemia and complicated anatomy made the transfusion highly likely. She feels that this was never told to her. This morning the mother is still very upset with me. She states that the pt went in for one procedure and left with two. She is still also very concerned about the transfusion. She also seems to be concerned that I had never met the Urologist prior to him making the repair. She asks, do I consult with them. She also wonders if the bladder injury occurred when we were attempting the vaginal portion with the pt. Explained the procedure in detail with the pt and her mother. It does not appear that my answers make the mother anymore comfortable. The pt is doing well. She is having some crampy abd pain from gas. Her surgical pain is well controlled. Gracy PO. Objective: Vital Signs: Vital Signs Date Time Temp Pulse Resp B/P (MAP) Pulse Ox O2 Delivery O2 Flow Rate FiO2 07/26/21 07:01 97.6 80 20 100 97.6 07/26/21 07:04 162/84 Room Air 07/26/21 14:23 10 Vital Signs Date Time Temp Pulse Resp B/P (MAP) Pulse Ox O2 Delivery O2 Flow Rate FiO2 07/27/21 05:00 99.1 87 23 92/62 (72) 98 Room Air 99.1 07/27/21 01:00 0.5 Labs: Laboratory Tests Test 07/26/21 15:46 07/26/21 22:21 07/27/21 06:45 White Blood Count 8.5 x10^3/uL (4.0-11.0) 18.9 x10^3/uL (4.0-11.0) H 13.6 x10^3/uL (4.0-11.0) H Red Blood Count 1.89 x10^6/uL (3.50-5.40) L 4.05 x10^6/uL (3.50-5.40) 3.69 x10^6/uL (3.50-5.40) Hemoglobin 4.2 g/dL (12.0-15.5) 9.0 g/dL (12.0-15.5) #L 8.2 g/dL (12.0-15.5) L Hematocrit 14.1 % (36.0-47.0) L 29.7 % (36.0-47.0) L 26.4 % (36.0-47.0) L Mean Corpuscular Volume 75 fL (79-100) #L 73 fL (79-100) L 72 fL (79-100) L Mean Corpuscular Hemoglobin 22 pg (25-35) L 22 pg (25-35) L 22 pg (25-35) L Mean Corpuscular Hemoglobin Concent 30 g/dL (31-37) L 30 g/dL (31-37) L 31 g/dL (31-37) Red Cell Distribution Width 20.4 % (11.5-14.5) H 21.7 % (11.5-14.5) H 22.3 % (11.5-14.5) H Platelet Count 224 x10^3/uL (140-400) 456 x10^3/uL (140-400) #H 402 x10^3/uL (140-400) H Neutrophils (%) (Auto) 87 % (31-73) H 78 % (31-73) H Lymphocytes (%) (Auto) 6 % (24-48) L 15 % (24-48) L Monocytes (%) (Auto) 5 % (0-9) 7 % (0-9) Eosinophils (%) (Auto) 2 % (0-3) 0 % (0-3) Basophils (%) (Auto) 1 % (0-3) 0 % (0-3) Neutrophils # (Auto) 16.5 x10^3/uL (1.8-7.7) H 10.6 x10^3/uL (1.8-7.7) H Lymphocytes # (Auto) 1.1 x10^3/uL (1.0-4.8) 2.0 x10^3/uL (1.0-4.8) Monocytes # (Auto) 0.9 x10^3/uL (0.0-1.1) 0.9 x10^3/uL (0.0-1.1) Eosinophils # (Auto) 0.3 x10^3/uL (0.0-0.7) 0.0 x10^3/uL (0.0-0.7) Basophils # (Auto) 0.1 x10^3/uL (0.0-0.2) 0.0 x10^3/uL (0.0-0.2) Sodium Level 144 mmol/L (136-145) Potassium Level 3.7 mmol/L (3.5-5.1) Chloride Level 110 mmol/L (98-107) H Carbon Dioxide Level 26 mmol/L (21-32) Anion Gap 8 (6-14) Blood Urea Nitrogen 9 mg/dL (7-20) Creatinine 0.9 mg/dL (0.6-1.0) Estimated GFR (Cockcroft-Gault) 83.5 Glucose Level 107 mg/dL (70-99) H Calcium Level 7.6 mg/dL (8.5-10.1) L Laboratory Tests 07/26/21 15:46 07/26/21 22:21 07/27/21 06:45 Laboratory Tests 07/27/21 06:45 Laboratory Tests 07/27/21 06:45 Physical Exam: GENERAL: No apparent distress. Alert and oriented. HEENT: Head normocephalic, atraumatic. NECK: Supple LUNGS: Clear to auscultation. HEART: RRR, S1, S2 present, pulses intact ABDOMEN: Soft, positive bowel sounds. EXTREMITIES: No cyanosis or edema. NEUROLOGIC: Normal speech, normal tone PSYCHIATRIC: Normal affect, normal mood. SKIN: No ulceration. Inc: dressing dry MEGHAN out 70 cc since surgery Assessment & Plan: A/P 41y POD #1 s/p LAVH converted to DANNY/LS 1.) PO doing well 2.) Bladder injury [place] in place, management per Urology 3.) Anemia Hgb 8.7 -> 1U pRBC intraop -> 4.2 (drawn in RR, likely artifact) -> additional 1U pRBC -> 8.2 4.) Path pending 5.) Indications Fibroids, Dysmenorrhea, Pelvic pain, Menorrhagia 6.) Amoxicillin allergy 7.) Anxiety 8.) Cont PO care CEDRIC NO MD Jul 27, 2021 10:30
[2021-07-27 10:45] VITALS: BP 114/71
--- NOTE | 2021-07-27 12:13 | PDOC ---
BETHANY KULKARNI 07/27/21 1212: SUBJECTIVE Subjective Pt reports pain controlled with medications, tolerating diet so far Urine has been yellow OBJECTIVE Vital Signs Vital Signs Date Time Temp Pulse Resp B/P (MAP) Pulse Ox O2 Delivery O2 Flow Rate FiO2 07/27/21 05:00 99.1 87 23 92/62 (72) 98 Room Air 99.1 07/27/21 03:27 Room Air 07/27/21 02:56 Room Air 07/27/21 01:00 99.3 86 22 99/55 (70) 96 Nasal Cannula 0.5 99.3 07/26/21 21:55 98.8 98.8 07/26/21 21:00 74 20 111/65 (80) 98 Nasal Cannula 0.5 07/26/21 20:15 Nasal Cannula 0.5 07/26/21 20:00 20 121/70 (87) 97 Nasal Cannula 0.5 07/26/21 19:00 82 18 125/63 (83) 94 Nasal Cannula 07/26/21 18:30 79 18 131/72 (91) 96 Nasal Cannula 07/26/21 18:00 98.7 79 18 140/71 (94) 96 Nasal Cannula 98.7 07/26/21 18:00 98.7 79 18 140/71 98.7 07/26/21 17:45 84 18 132/72 (92) 96 Nasal Cannula 2.0 07/26/21 17:34 78 18 127/73 (91) 96 Nasal Cannula 2.0 07/26/21 17:30 Nasal Cannula 2.0 07/26/21 17:19 82 18 147/77 (100) 97 Nasal Cannula 2.0 83 07/26/21 17:00 98.7 83 18 145/75 (98) 98 Room Air 98.7 83 83 83 07/26/21 16:57 84 24 160/72 98 Nasal Cannula 3 07/26/21 16:55 97.6 85 24 160/72 97.6 07/26/21 16:52 20 96 Nasal Cannula 3.0 07/26/21 16:40 20 96 Nasal Cannula 3.0 07/26/21 16:38 97.9 85 22 144/76 99 Nasal Cannula 3 97.9 07/26/21 16:36 97.9 85 24 144/76 97.9 07/26/21 16:24 16 96 Nasal Cannula 3.0 07/26/21 16:23 84 20 145/86 99 Nasal Cannula 3 07/26/21 16:08 97.9 84 20 144/76 99 Nasal Cannula 3 97.9 07/26/21 15:54 16 96 Nasal Cannula 3.0 07/26/21 15:53 80 20 146/72 100 Nasal Cannula 3 07/26/21 15:49 Nasal Cannula 3 07/26/21 15:38 81 16 137/68 96 Nasal Cannula 3 07/26/21 15:23 81 18 151/72 99 Nasal Cannula 3 07/26/21 15:13 18 96 Nasal Cannula 3.0 07/26/21 15:08 83 18 136/86 99 Nasal Cannula 3 07/26/21 14:53 88 18 148/84 97 Nasal Cannula 3 07/26/21 14:52 22 96 Room Air 07/26/21 14:38 88 22 136/73 99 Simple Mask 10 07/26/21 14:23 Mask 10 07/26/21 14:23 99.0 91 18 136/73 97 Simple Mask 10 99.0 I & O Intake and Output 07/27/21 07:00 Intake Total 3665 ml Output Total 4055 ml Balance -390 ml Intake Oral 5 ml IV Total 3260 ml Blood Product IV Normal Saline Flush 400 ml Output Urine Total 3125 ml Drainage Total 130 ml Estimated Blood Loss 800 ml PHYSICAL EXAM Physical Exam Pleasant, No acute distress Non-labored respirations, no supplemental oxygen Abdomen with clean dressings, tender to palpation. MEGHAN with s/s output Estrada draining yellow urine ASSESSMENT/PLAN Assessment/Plan POD 1 s/p DNANY. Repair of intra-operative bladder injury by Dr. Villar. Cr normal. MEGHAN output 80mL overnight. Yellow urine output. Doing well from urologic standpoint. Continued post-op care per Dr. Perez. Continue MEGHAN drain, will remove prior to d/c. Continue estrada x14 days. Will order cystogram to be performed prior to estrada removal. Will arrange f/u with Dr. Villar after that time. Discussed above with pt and mother. Questions answered. COMMENT Lab Laboratory Tests Test 07/26/21 15:46 07/26/21 22:21 07/27/21 06:45 White Blood Count 8.5 x10^3/uL (4.0-11.0) 18.9 x10^3/uL (4.0-11.0) 13.6 x10^3/uL (4.0-11.0) Red Blood Count 1.89 x10^6/uL (3.50-5.40) 4.05 x10^6/uL (3.50-5.40) 3.69 x10^6/uL (3.50-5.40) Hemoglobin 4.2 g/dL (12.0-15.5) 9.0 g/dL (12.0-15.5) 8.2 g/dL (12.0-15.5) Hematocrit 14.1 % (36.0-47.0) 29.7 % (36.0-47.0) 26.4 % (36.0-47.0) Mean Corpuscular Volume 75 fL (79-100) 73 fL (79-100) 72 fL (79-100) Mean Corpuscular Hemoglobin 22 pg (25-35) 22 pg (25-35) 22 pg (25-35) Mean Corpuscular Hemoglobin Concent 30 g/dL (31-37) 30 g/dL (31-37) 31 g/dL (31-37) Red Cell Distribution Width 20.4 % (11.5-14.5) 21.7 % (11.5-14.5) 22.3 % (11.5-14.5) Platelet Count 224 x10^3/uL (140-400) 456 x10^3/uL (140-400) 402 x10^3/uL (140-400) Neutrophils (%) (Auto) 87 % (31-73) 78 % (31-73) Lymphocytes (%) (Auto) 6 % (24-48) 15 % (24-48) Monocytes (%) (Auto) 5 % (0-9) 7 % (0-9) Eosinophils (%) (Auto) 2 % (0-3) 0 % (0-3) Basophils (%) (Auto) 1 % (0-3) 0 % (0-3) Neutrophils # (Auto) 16.5 x10^3/uL (1.8-7.7) 10.6 x10^3/uL (1.8-7.7) Lymphocytes # (Auto) 1.1 x10^3/uL (1.0-4.8) 2.0 x10^3/uL (1.0-4.8) Monocytes # (Auto) 0.9 x10^3/uL (0.0-1.1) 0.9 x10^3/uL (0.0-1.1) Eosinophils # (Auto) 0.3 x10^3/uL (0.0-0.7) 0.0 x10^3/uL (0.0-0.7) Basophils # (Auto) 0.1 x10^3/uL (0.0-0.2) 0.0 x10^3/uL (0.0-0.2) Sodium Level 144 mmol/L (136-145) Potassium Level 3.7 mmol/L (3.5-5.1) Chloride Level 110 mmol/L (98-107) Carbon Dioxide Level 26 mmol/L (21-32) Anion Gap 8 (6-14) Blood Urea Nitrogen 9 mg/dL (7-20) Creatinine 0.9 mg/dL (0.6-1.0) Estimated GFR (Cockcroft-Gault) 83.5 Glucose Level 107 mg/dL (70-99) Calcium Level 7.6 mg/dL (8.5-10.1) Justifications for Admission Other Justification PAPO VILLAR MD 07/27/21 2884: ASSESSMENT/PLAN Assessment/Plan Patient seen and examined. Doing well after surgery. Surgical findings / treatment discussed with patient. Will likely remove drain on 07/28 and then ok to d/c to home from urology perspective. Will plan to keep in estrada x 14 days, then cystogram prior to catheter removal to rule out bladder leak. BETHANY KULKARNI Jul 27, 2021 12:12 PAPO VILLAR MD Jul 27, 2021 16:44
[2021-07-27 17:30] VITALS: BP 98/66
[2021-07-27] MEDS: HYDROcodon/APAP 7.5/325MG ORAL 15 ML SOLUTION PO PRN (18:34)
[2021-07-27 20:52] VITALS: BP 111/69
[2021-07-28] MEDS: KETOROLAC 15 MG/ML VIAL. IV PRN ×3 (02:03→16:48)
[2021-07-28] MEDS: HYDROcodon/APAP 7.5/325MG ORAL 15 ML SOLUTION PO PRN ×2 (03:22→12:16)
[2021-07-28 05:29] VITALS: BP 105/61
[2021-07-28 08:11] VITALS: BP 113/75
[2021-07-28] MEDS: DOCUSATE SODIUM 100 MG CAPSULE. PO SCH (09:17)
[2021-07-28] MEDS: IV NORMAL SALINE 1000ML BAG 1,000 ML IV SCH (09:20)
[2021-07-28] MEDS ORDERED: HYDR15SO6 PO (09:28)
--- NOTE | 2021-07-28 09:40 | PDOC ---
HARVEST CONTRACTOR PROGRESS NOTE Date of Service: DATE: 07/28/21 TIME: 09:39 Subjective: Pt still with some discomfort. Gracy PO. Objective: Vital Signs: Vital Signs Date Time Temp Pulse Resp B/P (MAP) Pulse Ox O2 Delivery O2 Flow Rate FiO2 07/27/21 10:45 98.7 82 20 114/71 (85) 100 98.7 07/27/21 20:52 Room Air Vital Signs Date Time Temp Pulse Resp B/P (MAP) Pulse Ox O2 Delivery O2 Flow Rate FiO2 07/28/21 08:11 97.7 82 16 113/75 (88) Room Air 97.7 07/28/21 05:29 97 Physical Exam: GENERAL: No apparent distress. Alert and oriented. HEENT: Head normocephalic, atraumatic. NECK: Supple LUNGS: Clear to auscultation. HEART: RRR, S1, S2 present, pulses intact ABDOMEN: Soft, positive bowel sounds. EXTREMITIES: No cyanosis or edema. NEUROLOGIC: Normal speech, normal tone PSYCHIATRIC: Normal affect, normal mood. SKIN: No ulceration. Inc: C/D/I MEGHAN: 50 cc Assessment & Plan: A/P 41y POD #2 s/p LAVH converted to DANNY/LS 1.) PO doing well 2.) Bladder injury [place] in place, management per Urology 3.) Anemia Hgb 8.7 -> 1U pRBC intraop -> 4.2 (drawn in RR, likely artifact) -> additional 1U pRBC -> 8.2 4.) Path pending 5.) Indications Fibroids, Dysmenorrhea, Pelvic pain, Menorrhagia 6.) Amoxicillin allergy 7.) Anxiety 8.) Cont PO care CEDRIC NO MD Jul 28, 2021 09:40
--- NOTE | 2021-07-28 11:10 | PATHOLOGY ---
[facility] Accession Number: [id number] . 01 Material submitted: . uterus - UTERUS, CERVIX, LEFT FALLOPIAN TUBE. Modifiers: CERVIX, LEFT FALLOPIAN TUBE . 01 Clinical history: . UTERINE FIBROIDS OPEN ABDOMINAL HYSTERECTOMY CYSTECTOMY . 02 Diagnosis: Uterus and left fallopian tube, open abdominal hysterectomy and left salpingectomy: - Leiomyomas, uterine corpus, submucosal/intramural/subserosal, multiple, the largest measuring 6.1 cm in greatest dimension (uterine weight 854 grams). - Chronic cervicitis with focal squamous metaplasia. - Nabothian cyst, cervix. - Attenuated inactive/weakly proliferative endometrium. - Adenomyosis, uterine corpus, focal. - Mild chronic salpingitis and focal mild hydrosalpinx of left fallopian tube. - Left paratubal cysts. LBQ 07/28/2021 0944 Local . 02 Comment: There is no atypia or evidence of malignancy. (JPM/db; 07/28/2021) . 02 Electronically signed: . Álvaro Johnson MD, Pathologist NPI- [id number] . 01 Gross description: . Fixative: Formalin Labeled: Uterus, cervix, left fallopian tube Specimen received: A previously opened, uterus with attached cervix and attached left fallopian tube . Uterus weight: 854 g (without adnexa) Uterus: 14.1 cm from fundus to cervix, 12.0 cm from cornu to cornu, 14.9 cm from anterior to posterior Serosa: Intact, perry-pink, bosselated, smooth and glistening Cervix: 2.5 x 2.3 cm Ectocervix: Perry-pink, partially granular, with sloughing Cervical os: eccentrically located, 0.8 x 0.2 cm, slightly gaping Endocervix: Perry-pink, and spongy. The anterior cervix displays a single, nabothian cysts, measuring 0.5 cm, in greatest dimension. Endocervical canal: 4.4 cm Endometrial cavity: 8.5 x 4.4 cm Endometrium: Partially eprry-pink, and glistening, partially perry-brown, and granular, measuring 0.1 cm in thickness Myometrium: Perry-pink, trabeculated, measuring up to 4.5-7.0 cm in thickness. Lesions/abnormalities: The anterior and posterior myometrium displays multiple subserosal, intramural, submucosal and transmural nodules which appear ovoid, perry-white, whorled, and indurated. The nodules range in size from 0.3-6.1 cm, in greatest dimension. Sectioning of the nodules reveals no areas of hemorrhage, calcification or necrosis. . Left fallopian tube: 5.4 cm in length, 0.7-1.0 cm in diameter Left fallopian tube appearance: Fimbriated; pink-purple, smooth and glistening Left fallopian tube cut surface: Sectioning reveals a focally dilated lumen (up to 0.8 cm) . Photographs are obtained. Software Sales Representative sections are submitted as follows: A1 anterior cervix A2 posterior cervix A3-A4 anterior endomyometrium to include portion of nodule (one section bisected) A5-A6 posterior endomyometrium to include portion of nodule (one section bisected) A7 smallest nodules, represented A8-A9 largest nodules, represented A10 left fallopian tube, fimbriated end, bisected A11-A12 entire left fallopian tube cross sections (JGG; 07/27/2021) JGG/JGG 07/27/2021 1204 Local . 02 Pathologist provided ICD-10: D25.1, D25.2, N72, N80.0, N70.91, N70.11, N83.8 . 02 CPT . 173007 Specimen Comment: A courtesy copy of this report has been sent to [phone], [phone] Specimen Comment: [id number] Specimen Comment: Report sent to / DR MAI Performed at: [address], [place], [place] [id number] MD Judson Jean MD Phone: [phone] Performed at: 02 [facility] [address] [place], [place] [id number] MD Álvaro Johnson MD Phone: [phone]
--- NOTE | 2021-07-28 11:15 | PN ---
PROGRESS NOTES Date of Service DATE: 07/28/21 TIME: 11:07 Subjective Subjective Pt reports abd cramping this morning tolerating diet estrada remains yellow output Objective Objective Vital Signs Date Time Temp Pulse Resp B/P (MAP) Pulse Ox O2 Delivery O2 Flow Rate FiO2 07/28/21 08:11 97.7 82 16 113/75 (88) Room Air 97.7 07/28/21 05:29 97 07/27/21 01:00 0.5 Intake and Output 07/28/21 06:59 Intake Total 1400 ml Output Total 2650 ml Balance -1250 ml Intake Oral 1400 ml Output Urine Total 2600 ml Drainage Total 50 ml Physical Exam Physical Exam No acute distress, pleasant Nonlabored respirations Mildly tender abd, incisions c/d/i MEGHAN w s/s ouput estrdaa w yellow output Plan Plan of Care POD 1 s/p DANNY. Repair of intra-operative bladder injury by Dr. Jane. Cr normal. Yellow urine output. MEGHAN drain 30mL output overnight. OK to remove drain today. Continue estrada x14 days. Will order cystogram to be performed prior to estrada removal. Will arrange f/u with Dr. Jane after that time. Ok with d/c per Dr. Perez. Comment Review of Relevant I have reviewed the following items yared (where applicable) has been applied. Labs Laboratory Tests Test 07/26/21 15:46 07/26/21 22:21 07/27/21 06:45 White Blood Count 8.5 x10^3/uL (4.0-11.0) 18.9 x10^3/uL (4.0-11.0) 13.6 x10^3/uL (4.0-11.0) Red Blood Count 1.89 x10^6/uL (3.50-5.40) 4.05 x10^6/uL (3.50-5.40) 3.69 x10^6/uL (3.50-5.40) Hemoglobin 4.2 g/dL (12.0-15.5) 9.0 g/dL (12.0-15.5) 8.2 g/dL (12.0-15.5) Hematocrit 14.1 % (36.0-47.0) 29.7 % (36.0-47.0) 26.4 % (36.0-47.0) Mean Corpuscular Volume 75 fL (79-100) 73 fL (79-100) 72 fL (79-100) Mean Corpuscular Hemoglobin 22 pg (25-35) 22 pg (25-35) 22 pg (25-35) Mean Corpuscular Hemoglobin Concent 30 g/dL (31-37) 30 g/dL (31-37) 31 g/dL (31-37) Red Cell Distribution Width 20.4 % (11.5-14.5) 21.7 % (11.5-14.5) 22.3 % (11.5-14.5) Platelet Count 224 x10^3/uL (140-400) 456 x10^3/uL (140-400) 402 x10^3/uL (140-400) Neutrophils (%) (Auto) 87 % (31-73) 78 % (31-73) Lymphocytes (%) (Auto) 6 % (24-48) 15 % (24-48) Monocytes (%) (Auto) 5 % (0-9) 7 % (0-9) Eosinophils (%) (Auto) 2 % (0-3) 0 % (0-3) Basophils (%) (Auto) 1 % (0-3) 0 % (0-3) Neutrophils # (Auto) 16.5 x10^3/uL (1.8-7.7) 10.6 x10^3/uL (1.8-7.7) Lymphocytes # (Auto) 1.1 x10^3/uL (1.0-4.8) 2.0 x10^3/uL (1.0-4.8) Monocytes # (Auto) 0.9 x10^3/uL (0.0-1.1) 0.9 x10^3/uL (0.0-1.1) Eosinophils # (Auto) 0.3 x10^3/uL (0.0-0.7) 0.0 x10^3/uL (0.0-0.7) Basophils # (Auto) 0.1 x10^3/uL (0.0-0.2) 0.0 x10^3/uL (0.0-0.2) Sodium Level 144 mmol/L (136-145) Potassium Level 3.7 mmol/L (3.5-5.1) Chloride Level 110 mmol/L (98-107) Carbon Dioxide Level 26 mmol/L (21-32) Anion Gap 8 (6-14) Blood Urea Nitrogen 9 mg/dL (7-20) Creatinine 0.9 mg/dL (0.6-1.0) Estimated GFR (Cockcroft-Gault) 83.5 Glucose Level 107 mg/dL (70-99) Calcium Level 7.6 mg/dL (8.5-10.1) Medications Current Medications Fentanyl Citrate (Fentanyl 2ml Vial) 25 mcg PRN Q5MIN PRN IVP MILD PAIN 1-3; Start 07/26/21 at 06:00; Stop 07/26/21 at 20:00; Status DC Fentanyl Citrate (Fentanyl 2ml Vial) 50 mcg PRN Q5MIN PRN IVP MODERATE PAIN 4-6 Last administered on 07/26/21at 15:13; Start 07/26/21 at 06:00; Stop 07/26/21 at 20:00; Status DC Morphine Sulfate (Morphine Sulfate) 1 mg PRN Q10MIN PRN IVP SEVERE PAIN 7-10; Start 07/26/21 at 06:00; Stop 07/26/21 at 20:00; Status DC Ringer's Solution 1,000 ml @ 30 mls/hr Q24H IV Last administered on 07/26/21at 07:06; Start 07/26/21 at 06:00; Stop 07/26/21 at 14:30; Status DC Hydromorphone HCl (Dilaudid) 0.5 mg PRN Q10MIN PRN IVP SEVERE PAIN 7-10, 2nd CHOICE Last administered on 07/26/21at 16:52; Start 07/26/21 at 06:00; Stop 07/26/21 at 20:00; Status DC Prochlorperazine Edisylate (Compazine) 5 mg PACU PRN PRN IVP NAUSEA, MRX1; Start 07/26/21 at 06:00; Stop 07/26/21 at 20:00; Status DC Clindamycin Phosphate 50 ml @ 100 mls/hr 1X PREOP PRN IV PRIOR TO SURGERY Last administered on 07/26/21at 08:11; Start 07/26/21 at 06:00; Stop 07/26/21 at 14:30; Status DC Gentamicin Sulfate 400 mg/ Dextrose 110 ml @ 110 mls/hr 1X PREOP PRN IV PRIOR TO SURGERY Last administered on 07/26/21at 08:00; Start 07/26/21 at 08:00; Stop 07/26/21 at 14:30; Status DC Methylene Blue (Provayblue) 10 ml STK-MED ONCE .ROUTE ; Start 07/26/21 at 07:32; Stop 07/26/21 at 07:32; Status DC Propofol (Diprivan) 200 mg STK-MED ONCE IV ; Start 07/26/21 at 07:36; Stop 07/26/21 at 07:37; Status DC Lidocaine HCl (Lidocaine Pf 2% Vial) 5 ml STK-MED ONCE .ROUTE ; Start 07/26/21 at 07:36; Stop 07/26/21 at 07:37; Status DC Dexamethasone Sodium Phosphate (Decadron) 4 mg STK-MED ONCE .ROUTE ; Start 07/26/21 at 07:36; Stop 07/26/21 at 07:37; Status DC Ondansetron HCl (Zofran) 4 mg STK-MED ONCE .ROUTE ; Start 07/26/21 at 07:36; Stop 07/26/21 at 07:37; Status DC Rocuronium [place] (Zemuron) 50 mg STK-MED ONCE .ROUTE ; Start 07/26/21 at 07:37; Stop 07/26/21 at 07:37; Status DC Midazolam HCl (Versed) 2 mg STK-MED ONCE .ROUTE ; Start 07/26/21 at 07:38; Stop 07/26/21 at 07:38; Status DC Fentanyl Citrate (Fentanyl 2ml Vial) 100 mcg STK-MED ONCE .ROUTE ; Start 07/26/21 at 07:38; Stop 07/26/21 at 07:38; Status DC Neostigmine [place] (Neostigmine Methylsulfate) 5 mg STK-MED ONCE .ROUTE ; Start 07/26/21 at 07:40; Stop 07/26/21 at 07:40; Status DC Glycopyrrolate (Robinul) 1 mg STK-MED ONCE .ROUTE ; Start 07/26/21 at 07:40; Stop 07/26/21 at 07:40; Status DC Fentanyl Citrate (Fentanyl 2ml Vial) 100 mcg STK-MED ONCE .ROUTE ; Start 07/26/21 at 08:11; Stop 07/26/21 at 08:11; Status DC Sevoflurane (Ultane) 90 ml STK-MED ONCE IH ; Start 07/26/21 at 08:25; Stop 07/26/21 at 08:26; Status DC Rocuronium [place] (Zemuron) 50 mg STK-MED ONCE .ROUTE ; Start 07/26/21 at 09:10; Stop 07/26/21 at 09:10; Status DC Famotidine (Pepcid Vial) 20 mg STK-MED ONCE .ROUTE ; Start 07/26/21 at 09:33; Stop 07/26/21 at 09:33; Status DC Hydromorphone HCl (Dilaudid) 2 mg STK-MED ONCE .ROUTE ; Start 07/26/21 at 09:56; Stop 07/26/21 at 09:56; Status DC Albumin Human 500 ml @ As Directed STK-MED ONCE IV ; Start 07/26/21 at 10:07; Stop 07/26/21 at 10:08; Status DC Methylene Blue (Provayblue) 10 ml STK-MED ONCE .ROUTE ; Start 07/26/21 at 11:22; Stop 07/26/21 at 11:23; Status DC Rocuronium [place] (Zemuron) 50 mg STK-MED ONCE .ROUTE ; Start 07/26/21 at 12:33; Stop 07/26/21 at 12:34; Status DC Sugammadex Sodium (Bridion) 200 mg 1X ONCE IVP ; Start 07/26/21 at 13:15; Stop 07/26/21 at 13:16; Status DC Propofol (Diprivan) 200 mg STK-MED ONCE IV ; Start 07/26/21 at 13:33; Stop 07/26/21 at 13:33; Status DC Diphenhydramine HCl (Benadryl) 25 mg PRN Q6HRS PRN PO ITCHING; Start 07/26/21 at 14:30 Diphenhydramine HCl (Benadryl) 25 mg PRN Q6HRS PRN IV ITCHING; Start 07/26/21 at 14:30 Sodium Chloride (Normal Saline Flush) 3 ml QSHIFT PRN IV AFTER MEDS AND BLOOD DRAWS; Start 07/26/21 at 14:30 Dextrose/Sodium Chloride 1,000 ml @ 100 mls/hr Q10H IV Last administered on 07/27/21at 09:47; Start 07/26/21 at 14:30 Dextrose (Dextrose 50%-Water Syringe) 12.5 gm PRN Q15MIN PRN IV SEE COMMENTS; Start 07/26/21 at 14:30 Oxycodone/ Acetaminophen (Percocet 5/325) 1 tab PRN Q4HRS PRN PO MILD PAIN, 1ST CHOICE; Start 07/26/21 at 14:30 Oxycodone/ Acetaminophen (Percocet 5/325) 2 tab PRN Q4HRS PRN PO SEVERE PAIN; Start 07/26/21 at 14:30 Ketorolac Tromethamine (Toradol 15mg Vial) 15 mg PRN Q6HRS PRN IV PAIN Last administered on 07/28/21at 09:18; Start 07/26/21 at 14:30; Stop 07/31/21 at 14:29 Ibuprofen (Motrin) 600 mg PRN Q8HRS PRN PO INFLAMMATION; Start 07/26/21 at 14:30 Naloxone HCl (Narcan) 0.4 mg PRN Q2MIN PRN IV SEE INSTRUCTIONS; Start 07/26/21 at 14:30 Sodium Chloride 1,000 ml @ 25 mls/hr Q24H IV ; Start 07/26/21 at 14:30 Morphine Sulfate (Morphine Sulfate) 1 mg PRN Q1HR PRN IV PAIN-SEE COMMENTS Last administered on 07/27/21at 02:56; Start 07/26/21 at 14:30 Morphine Sulfate (Morphine Sulfate) 2 mg PRN Q1HR PRN IV PAIN-SEE COMMENTS; Start 07/26/21 at 14:30 Docusate Sodium (Colace) 100 mg BID PO Last administered on 07/28/21at 09:17; Start 07/26/21 at 21:00 Fentanyl Citrate (Fentanyl 2ml Vial) 100 mcg STK-MED ONCE .ROUTE ; Start 07/26/21 at 14:49; Stop 07/26/21 at 14:50; Status DC Hydromorphone HCl (Dilaudid) 2 mg STK-MED ONCE .ROUTE ; Start 07/26/21 at 15:53; Stop 07/26/21 at 15:53; Status DC Ondansetron HCl (Zofran) 4 mg PRN Q6HRS PRN IVP NAUSEA/VOMITING Last administered on 07/26/21at 19:09; Start 07/26/21 at 18:45 Acetaminophen/ Hydrocodone Bitart (Lortab 7.5-325/ 15ml Oral Solution) 15 ml PRN Q6HRS PRN PO MODERATE PAIN Last administered on 07/28/21at 03:22; Start 07/27/21 at 17:15 Active Scripts Active Hydrocodone-Apap 7.5-325/15 Soln (Hydrocodone Bit/Acetaminophen) 15 Ml Solution 15 Ml PO PRN Q6HRS PRN Proair Hfa Inhaler (Albuterol Sulfate) 8.5 Gm Hfa.aer.ad 1 Puff INH Q4HRS PRN Reported Escitalopram Oxalate 10 Mg Tablet 10 Mg PO HS Hydroxyzine Hcl 25 Mg Tablet 25 Mg PO PRN BID PRN Vitals/I & O Vital Sign - Last 24 Hours 07/27/21 07/27/21 07/27/21 07/28/21 17:30 18:34 20:52 05:29 Temp 99.7 99.7 98.1 99.7 99.7 98.1 Pulse 90 76 75 Resp 18 18 20 16 B/P (MAP) 98/66 (77) 111/69 (83) 105/61 (76) Pulse Ox 98 100 97 O2 Delivery Room Air Room Air 07/28/21 08:11 Temp 97.7 97.7 Pulse 82 Resp 16 B/P (MAP) 113/75 (88) O2 Delivery Room Air Intake and Output 07/27/21 07/27/21 07/28/21 14:59 22:59 06:59 Intake Total 1400 ml Output Total 920 ml 1730 ml Balance -920 ml -330 ml BETHANY KULKARNI Jul 28, 2021 11:15
[2021-07-28] MEDS: ONDANSETRON PF 4 MG/2 ML VIAL. IVP PRN (11:39)
[2021-07-28 14:02] VITALS: BP 108/55
[2021-07-28] MEDS ORDERED: OXYC1TAB15 PO (17:16)
--- NOTE | 2021-08-03 16:51 | DS ---
DATE OF DISCHARGE: 07/28/2021 ADMISSION DIAGNOSES: 1. Fibroids. 2. Dysmenorrhea. 3. Pelvic pain. 4. Menorrhagia. 5. Previous section x 2. 6. AMOXICILLIN ALLERGY. 7. Anxiety. 8. History of bilateral tubal ligation. DISCHARGE DIAGNOSES: 1. Fibroids. 2. Dysmenorrhea. 3. Pelvic pain. 4. Menorrhagia. 5. Previous section x 2. 6. AMOXICILLIN ALLERGY. 7. Anxiety. 8. History of bilateral tubal ligation. 9. Bladder injury. PROCEDURES: 1. Laparoscopic-assisted vaginal hysterectomy converted to total abdominal hysterectomy with left salpingectomy. 2. Repair of bladder injury. BRIEF HOSPITAL COURSE: The patient is a 41-year-old 3, para 2-0-1-2, who presented for scheduled surgery. The patient had been seen on 11/18 for followup on her fibroids. Her fibroids were associated with pain and bleeding. An ultrasound performed on 11/11/2020 revealed her uterus to measure 14.1 x 7.9 x 13.0 cm with fibroids measuring 7.1 x 6.8 x 6.5 cm and another one measuring 4.7 x 2.9 x 3.9 cm. After discussion of treatment options with the patient, the patient desired definitive treatment. The patient underwent an LAVH that was converted to a total abdominal hysterectomy with left salpingectomy. The procedure was complicated by bladder injury. Urology was consulted intraoperatively. The patient had received 1 unit of packed red blood cells intraoperatively. The CBC was obtained in the recovery room and was found to be 4.2. This was down from her initial hemoglobin of 8.7 when she arrived that morning. This was thought to be inconsistent with her intraoperative findings. She was given an additional unit of blood and her post-transfusion hemoglobin was found to be 9.0, which remained stable throughout her hospital course. By day #2, the patient was meeting all discharge criteria and was subsequently discharged home. The patient was to have her Lake in place for the next 14 days per Urology recommendations. DISCHARGE INSTRUCTIONS: The patient was told not to lift anything greater than 20 pounds, have pelvic rest for 6 weeks, not to drive on narcotics. CALL IF: The patient was to call if she had fevers, chills, nausea, vomiting, abdominal pain or any additional questions or concerns. FOLLOWUP APPOINTMENT: The patient was to follow up on 08/02/2021 at 2:45 p.m. in [place]. DISCHARGE MEDICATIONS: The patient was given a prescription for Percocet 5, 15 pills; Motrin 800 mg, 30 pills; ferrous sulfate 325 mg, 30 pills and Colace 100 mg, 30 pills. DAMON/YESSICA DR: Rasta TID: [id number]
== END 2021-07-28 18:27 | disposition home or self-care (01) | DRG 743 ==
LOC: SURG 06:29 → 3 SO LND 15:20 → OBSVTOIN 15:21
PROVIDERS: ADMIT Obstetrics & Gynecology; ATTEND Obstetrics & Gynecology
PROC: 0UT9FZZ Resection of Uterus, Via Natural or Artificial Opening With Percutaneous Endoscopic Assistance (ICD-10-PCS; 2021-07-26)
PROC: 30233N1 Transfusion of Nonautologous Red Blood Cells into Peripheral Vein, Percutaneous Approach (ICD-10-PCS; 2021-07-26)
PROC: 0UT90ZZ Resection of Uterus, Open Approach (ICD-10-PCS; principal; 2021-07-26 08:00)
DX: D25.9 Leiomyoma of uterus, unspecified (principal); D64.9 Anemia, unspecified; E11.9 Type 2 diabetes mellitus without complications; F41.9 Anxiety disorder, unspecified; I10 Essential (primary) hypertension; K66.0 Peritoneal adhesions (postprocedural) (postinfection); M19.90 Unspecified osteoarthritis, unspecified site; N92.0 Excessive and frequent menstruation with regular cycle; N94.6 Dysmenorrhea, unspecified; Z88.0 Allergy status to penicillin; F32.A Depression, unspecified; Z20.822 Contact with and (suspected) exposure to COVID-19; R31.0 Gross hematuria
CPT/HCPCS: 36415; 36430; 80048; 81025; 85025; 85027; 86850; 86900; 86901; 86920; 88307; A4213; A4223; A4314; A4344; A4364; A4452; A4657; A4911; A4930; A6257; A6402; G0379; J1100; J1170; J1885; J2250; J2270; J2405; J2704; J2710; J3010; J3490; J7030; J7042; P9016; P9045; Q9968; G0378

== ENCOUNTER 2021-08-05 21:21 | Emergency (ER) | payer OTHER ==
[~2021-08-05 21:21] MED LIST changes: -CLINDAMYCIN 900MG PREMIX 50 ML IV PRN; +HYDR15SO6 PO; -IV RINGERS,LACTATED 1000ML 1,000 ML IV SCH; -MORPHINE SULFATE 2 MG/ML INJ. IVP PRN; +OXYC1TAB15 PO; -PROCHLORPERAZINE 10 MG/2 ML VIAL. IVP PRN; -fentaNYL PF VIAL 100 MCG/2 ML VIAL IVP PRN
== END 2021-08-05 21:36 | disposition left against medical advice (07) ==
LOC: ER 21:21
DX: Z46.6 Encounter for fitting and adjustment of urinary device (principal); Z53.21 Procedure and treatment not carried out due to patient leaving prior to being seen by health care provider

== ENCOUNTER → 2021-08-08 | Outpatient (CLI) | payer OTHER ==
[2021-07-28 14:02] VITALS: BP 108/55
[~2021-08-08] MED LIST changes: +DIATRIZOATE MEGLUMINE 18% 300 ML SOLUTION. BLADIN ONE
--- NOTE | 2021-08-08 14:31 | RAD ---
EXAM: Cystogram. HISTORY: Bladder injury during hysterectomy. TECHNIQUE: A fluoroscopic clinical safety manager image of the pelvis is obtained. Images were then obtained during the retrograde instillation of water-soluble contrast through an indwelling catheter into the bladder. 1 2 fluoroscopic images were obtained for total fluoroscopy time of 1.1 minute. COMPARISON: None. FINDINGS: The clinical safety manager image of the pelvis demonstrates a Lake catheter overlying expected position. Th e images obtained during and following the administration of contrast into the bladder demonstrate no rmal bladder configuration. There is no evidence of a bladder leak. There is complete emptying on the post evacuation image. No residual contrast is seen. IMPRESSION: No evidence of bladder leak or alternative bladder pathology. Electronically signed by: Jennifer Maki MD (08/08/2021 2:29 PM) [id number]
== END ==
LOC: RAD 12:58
PROVIDERS: ATTEND Urology
DX: S37.29XD Other injury of bladder, subsequent encounter (principal); X58.XXXD Exposure to other specified factors, subsequent encounter
CPT/HCPCS: 74430; Q9958